=== PATIENT | male | born 1975 | race Two or more races ===

== ENCOUNTER 2021-12-09 15:18 | Emergency (ER) | payer MEDICAID, OTHER ==
[~2021-12-09] VITALS: Ht 165.1 cm; Wt 90.7 kg
[2021-12-09] MEDS ORDERED: IBUP400T23 PO (19:30)
[2021-12-09 19:43] VITALS: BP 126/88
== END 2021-12-09 21:24 | disposition home or self-care (01) ==
LOC: ER 15:18
DX: S80.01XA Contusion of right knee, initial encounter (principal); W01.0XXA Fall on same level from slipping, tripping and stumbling without subsequent striking against object, initial encounter; Y93.01 Activity, walking, marching and hiking; Y92.89 Other specified places as the place of occurrence of the external cause; Y99.8 Other external cause status
CPT/HCPCS: 96372